=== PATIENT | male | born 1975 | race Caucasian/White ===

== ENCOUNTER → 2018-03-17 | Outpatient (CLI) | payer BC ==
[~2018-03-17] MED LIST: CLOT1TC TOP; CYCL10 PO; Chantix1 EACH; FAMO40 PO; HYDACE5 PO; LAVAP17G PO; META800 PO; NAPR500 PO; OXYACE5T PO; SULTRIDS PO; Zofran Odt4 MG SL
== END | disposition home or self-care (01) ==
LOC: LAB SHORT 10:47 → PLD 10:47
DX: D22.39 Melanocytic nevi of other parts of face (principal)
CPT/HCPCS: 88305